=== PATIENT | male | born 2000 | race Hispanic/Latino ===

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

== ENCOUNTER 2022-07-15 10:20 | Emergency (ER) | payer OTHER, SELFPAY ==
--- NOTE | 2022-07-15 10:29 | ED.URI ---
HPI - URI/Sore Throat General Chief Complaint: Upper Respiratory Infection Stated Complaint: sorethroat Time Seen by Provider: 07/15/22 10:29 Source: patient Mode of arrival: ambulatory Limitations: no limitations History of Present Illness HPI Narrative: Howard is a 22-year-old male patient presenting to the clinic today with complaints of a sore throat. He reports symptoms have been going on for a few days. No known fever or chills. MD elicited complaint: sore throat and nasal congestion Related Data Allergies Allergy/AdvReac Type Severity Reaction Status Date / Time No Known Allergies Allergy Verified 07/15/22 10:51 Review of Systems Review of Systems: Pertinent positives per HPI. Patient denies any fever, chills,rash, headache, visual changes, dizziness, shortness of breath, chest pain, palpitations, nausea, vomiting, diarrhea, constipation, abdominal pain, or any urinary issues. ON LICENSE OF [facility] Past Medical History Medical History Healthy adult male Surgical History Surgical History No history of previous surgery Social History Social History Second hand tobacco smoke exposure: No Gender identity (if verbalized by the patient): Male Comments At the time of my signature, I reviewed and agree with the nursing past medical, surgical, social, and family history. There is no relevant family history pertinent to the patient complaint. Exam Narrative: General: Well-developed, well nourished, in no apparent distress Head: Normocephalic, atraumatic Eyes: Pupils equally round and reactive to light bilaterally, EOM intact, sclera and conjunctive clear, no discharge, lids normal Ears: TMs intact and clear, ear canals clear, no drainage, grossly hearing normal. Nose: Nares patent, clear nasal discharge, no inflammation, no sinus tenderness. Mouth: Oral pharynx without lesions or masses, good dentition, MMM. Oropharynx red, postnasal drip Neck: Supple, trachea midline, no enlargement of anterior or posterior cervical nodes, no thyroid masses or goiter palpable. Cardio: Regular rate and rhythm, s1 and s2 normal, no murmur appreciated. Resp: Clear to auscultation bilaterally, no rhonchi, rales, wheezing or rubs Course Course Emergency Course: Portions of this record may have been created with voice recognition software. Level of Care: Express Care Visit Vital Signs Vital signs: Vital Signs Temperature 36.7 C 07/15/22 10:42 Pulse Rate 76 07/15/22 10:42 Respiratory Rate 18 07/15/22 10:42 Blood Pressure 116/69 07/15/22 10:42 Pulse Oximetry 100 07/15/22 10:42 Oxygen Delivery Room Air 07/15/22 10:42 Temperature 36.7 C 07/15/22 10:42 Pulse Rate 76 07/15/22 10:42 Respiratory Rate 18 07/15/22 10:42 Blood Pressure 116/69 07/15/22 10:42 Pulse Oximetry 100 07/15/22 10:42 Oxygen Delivery Room Air 07/15/22 10:42 Vital signs reviewed MDM - URI/Sore Throat MDM Narrative Medical decision making narrative: at the time of the patient is resting comfortably on the exam table. Strep screen was obtained and was negative. We will send for culture. Supportive measures were discussed with the patient he voiced understanding of discharge instructions. Differential Diagnosis Differential diagnosis: Likely upper respiratory infection, otitis media, sinusitis, viral infection, bronchitis, influenza, pharyngitis and other ( COVID) Lab Data Labs: Strep Screen Presumptive Negative *(Reference Range: Negative)* Discharge Plan Discharge Clinical Impression: Pharyngitis Qualifiers: Pharyngitis/tonsillitis etiology: unspecified etiology Qualified Code(s): J02.9 - Acute pharyngitis, unspecified Patient Disposition: Home, Self-Care Condit
[2022-07-15 10:42] VITALS: BP 116/69; PULSE 76; RESP 18; TEMP 36.7; O2SAT 100
== END 2022-07-15 10:59 | disposition home or self-care (01) ==
PROVIDERS: Emergency Provider Nurse Practitioner Family
DX: J02.9 Acute pharyngitis, unspecified (principal)
CPT/HCPCS: 87081; 87880; 99213; G0463

== ENCOUNTER 2024-06-13 11:39 | Emergency (ER) | payer OTHER, SELFPAY ==
[2024-06-13 11:55] VITALS: BP 118/63; PULSE 69; RESP 18; TEMP 36.5; O2SAT 100
[2024-06-13 14:18] VITALS: BP 116/52; PULSE 67; RESP 16; O2SAT 98
--- NOTE | 2024-06-13 14:23 | ED_ITS ---
HPI - Wound/Laceration General Chief Complaint: Wound/Laceration <Tasha Dorantes APRN - Last Filed: 06/13/24 14:25> Stated Complaint: L leg lac <Tasha Dorantes APRN - Last Filed: 06/13/24 14:25> Time Seen by Provider: 06/13/24 14:15 <Tasha Dorantes APRN - Last Filed: 06/13/24 14:25> Focused HPI: Patient is a 24-year-old male who presents to the ER with 1 cm long laceration in his left upper leg. He reports he was at work and using a razor knife and it slipped and he lacerated his leg. Patient does not know when he last had tetanus vaccine. He denies pain. S patient reports his only medical history was some stomach issue but denies any other pertinent medical history related to this ER visit. GENERAL: Well-appearing, well-nourished, and in no acute distress. HEAD: Normocephalic, atraumatic. CHEST: Clear to auscultation. ?No respiratory distress. HEART: Regular rate and rhythm.? NEURO: ?Alert and oriented x3. Patient screened in triage and initial orders placed.? ?Additional care and disposition to be based upon?diagnostic testing and treatment. <Tasha Dorantes APRN - Last Filed: 06/13/24 14:25> History of Present Illness HPI narrative: 24-year-old male presenting with leg laceration. He was using a razor knife and he slipped and he accidentally cut his left thigh. No further injuries or complaints. He is unsure on Tdap status. <Ericka Goyal MD - Last Filed: 06/13/24 19:31> Related Data Allergies/Adverse Reactions: Allergies Allergy/AdvReac Type Severity Reaction Status Date / Time No Known Allergies Allergy Verified 06/13/24 12:01 <Tasha Dorantes APRN - Last Filed: 06/13/24 14:25> Review of Systems Review of Systems: All systems reviewed & are unremarkable except as noted in HPI and below <Ericka Goyal MD - Last Filed: 06/13/24 19:31> PMFSH Past Medical History Medical History: Medical History Healthy adult male <Tasha Dorantes APRN - Last Filed: 06/13/24 14:25> Surgical History Surgical History: Surgical History No history of previous surgery <Tasha Dorantes APRN - Last Filed: 06/13/24 14:25> Social History Social History: Social History Second hand tobacco smoke exposure: No Gender identity (if verbalized by the patient): Male <Tasha Dorantes APRN - Last Filed: 06/13/24 14:25> Exam Narrative: GENERAL: Well-appearing, well-nourished, and in no acute distress. HEAD: Normocephalic, atraumatic. EYES: PERRLA and EOMI. ENT: Grossly unremarkable NECK: Supple. CHEST: No respiratory distress. HEART: Regular rate and rhythm EXTREMITIES: Normal range of motion. SKIN: Warm, dry, 1.5cm laceration medial L thigh NEURO: No focal deficits. Alert and oriented x3. PSYCH: Normal mood and affect. <Ericka Goyal MD - Last Filed: 06/13/24 19:31> Course Vital Signs Vital signs: Vital Signs Temperature 97.7 F 06/13/24 11:55 Pulse Rate 69 06/13/24 11:55 Respiratory Rate 18 06/13/24 11:55 Blood Pressure 118/63 06/13/24 11:55 Pulse Oximetry 100 06/13/24 11:55 Oxygen Delivery Room Air 06/13/24 11:55 Temperature 97.7 F 06/13/24 11:55 Pulse Rate 69 06/13/24 17:45 Respiratory Rate 18 06/13/24 17:45 Blood Pressure 108/74 06/13/24 17:45 Pulse Oximetry 98 06/13/24 17:45 Oxygen Delivery Room Air 06/13/24 11:55 <Tasha Dorantes APRN - Last Filed: 06/13/24 14:25> Vital Signs Temperature 97.7 F 06/13/24 11:55 Pulse Rate 69 10/29/24 11:55 Respiratory Rate 18 06/13/24 11:55 Blood Pressure 118/63 06/13/24 11:55 Pulse Oximetry 100 06/13/24 11:55 Oxygen Delivery Room Air 06/13/24 11:55 Temperature 97.7 F 06/13/24 11:55 Pulse Rate 69 06/13/24 17:45 Respiratory Rate 18 06/13/24 17:45 Blood Pressure 108/74 06/13/24 17:45 Pulse Oximetry 98 06/13/24 17:45 Oxygen Delivery Room Air 06/13/24 11:55 <Ericka Goyal MD - Last Filed: 06/13/24 19:31> Procedures Laceration Laceration 1: Date: 06/13/24 <Ericka Goyal MD - Last Filed: 06/13/24 19:31> Time: 17:22 <Ericka Goyal MD - Last Filed: 06/13/24 19:31> Site: lower extremity <Ericka Goyal MD - Last Filed: 06/13/24 19 :31> Side (If applicable): left <Ericka Goyal MD - Last Filed: 06/13/24 19:31> Size (cm): 1.5 <Ericka Goyal MD - Last Filed: 06/13/24 19:31> Description: linear <Ericka Goyal MD - Last Filed: 06/13/24 19:31> Depth: simple, single layer <Ericka Goyal MD - Last Filed: 06/13/24 19:31> Local Anesthetic: lidocaine 1% <Ericka Goyal MD - Last Filed: 06/13/24 19:31> ====== Skin Level ======: Skin layer closed with: nylon <Ericka Goyal MD - Last Filed: 06/13/24 19:31> Size (cm): 4-0 <Ericka Goyal MD - Last Filed: 06/13/24 19:31> Number of sutures: 3 <Ericka Goyal MD - Last Filed: 06/13/24 19:31> Technique: simple, interrupted <Ericka Goyal MD - Last Filed: 06/13/24 19:31> ====== Subcutaneous Layer ======: ====== Muscle Layer ======: ====== Tendon Layer ======: MDM - Wound/Laceration MDM Narrative Medical decision making narrative: 24-year-old male presenting with laceration to his leg. Vitals stable. Exam remarkable for the above. Tdap was updated. Laceration repaired at bedside without complication. He is safe for outpatient management. Discussed appropriate supportive care and return precautions. discharged in stable condition. <Ericka Goyal MD - Last Filed: 06/13/24 19:31> Differential Diagnosis Differential diagnosis: Likely laceration, abrasion and avulsion of skin <Ericka Goyal MD - Last Filed: 06/13/24 19:31> Medical Records Attestation: I reviewed the patient's medical records. <Ericka Goyal MD - Last Filed: 06/13/24 19:31> Critical Care Time Critical Care Time Critical Care Time: No <Ericka Goyal MD - Last Filed: 06/13/24 19:31> Discharge Plan Discharge Clinical Impression: Laceration <Tasha Dorantes APRN - Last Filed: 06/13/24 14:25> Patient Disposition: Home, Self-Care <Tasha Dorantes APRN - Last Filed: 06/13/24 14:25> Condition: Stable <Tsaha Dorantes APRN - Last Filed: 06/13/24 14:25> Instructions: Antibiotic Form, Care For Your Stitches (ED), Laceration (ED) <Tasha Dorantes APRN - Last Filed: 06/13/24 14:25> Additional Instructions: The laceration on your leg has been repaired with stitches. Please have these removed in 7-10 days. Please keep the area clean and dry for the 1st 24 hours. Monitor for signs of infection such as suddenly worsening pain, spreading redness, purulent drainage, fevers. If your symptoms worsen or other concerning symptoms arise, please return to the ER. <Tasha Dorantes APRN - Last Filed: 06/13/24 14:25> Prescriptions: No Action lidocaine HCl [Lidocaine Viscous] 2 % solution 1 applic mucous membrane QID PRN (Reason: pain) 7 Days Qty: 100 1RF <Tasha Dorantes APRN - Last Filed: 06/13/24 14:25> Follow-up/Referrals: PHYSICIAN,CORPORATE SECURITY MANAGER [Non-Staff] - <Tasha Dorantes APRN - Last Filed: 06/13/24 14:25>
[2024-06-13] MEDS: TETANUS,DIPHTHERIA,AC PERTUSSIS ADULT (0.5 ML) BOOSTRIX IM (15:48)
[2024-06-13 17:45] VITALS: BP 108/74; PULSE 69; RESP 18; O2SAT 98
== END 2024-06-13 17:47 | disposition home or self-care (01) ==
PROVIDERS: Emergency Provider Emergency Medicine
DX: S71.112A Laceration without foreign body, left thigh, initial encounter (principal); Z23 Encounter for immunization; W27.8XXA Contact with other nonpowered hand tool, initial encounter
CPT/HCPCS: 12001; 90471; 90715; 99282